=== PATIENT | male | born 1975 | race Caucasian/White ===

== ENCOUNTER 2016-10-26 04:21 | Emergency (ER) | payer BC ==
[2016-10-26] MEDS ORDERED: NO MEDICATIONS (05:17)
== END 2016-10-26 06:30 | disposition home or self-care (01) ==
LOC: CED 04:21
DX: R11.2 Nausea with vomiting, unspecified (principal); F17.210 Nicotine dependence, cigarettes, uncomplicated
CPT/HCPCS: 96361; 96374; 99284; J2405